=== PATIENT | female | born 2000 | race African-American/Black ===

== ENCOUNTER 2022-08-20 02:45 | Emergency (ER) | payer MEDICAID ==
[~2022-08-20] VITALS: Ht 170.2 cm; Wt 112.0 kg
[2022-08-20 03:00] VITALS: BP 127/90
== END 2022-08-20 05:15 | disposition home or self-care (01) ==
LOC: ER 02:45
DX: Z32.02 Encounter for pregnancy test, result negative (principal)
CPT/HCPCS: 81025; 99282

== ENCOUNTER 2022-12-04 13:55 | Emergency (ER) | payer OTHER, MEDICAID ==
[~2022-12-04] VITALS: Ht 170.2 cm; Wt 109.0 kg
[2022-12-04 13:57] VITALS: BP 155/81
[2022-12-04] MEDS ORDERED: ACETAMINOPHEN 325MG TABLET PO ONE (17:15)
[2022-12-04] MEDS ORDERED: NAPR-681 MT (18:22)
[2022-12-04] MEDS ORDERED: ACET-2708 MT (18:22)
== END 2022-12-04 18:40 | disposition home or self-care (01) ==
LOC: ER 13:55
DX: M75.22 Bicipital tendinitis, left shoulder (principal)
CPT/HCPCS: 73030; 81025; 99283